=== PATIENT | male | born 1950 | race American Indian/Alaskan Native ===

== ENCOUNTER 2020-06-16 13:27 | Outpatient (CLI) | payer MEDICARE ==
[2020-06-16 14:55] LABS: Albumin 3.9 g/dL (3.9-5); BUN/Creatinine Ratio 15; Blood Urea Nitrogen 20 mg/dL (9-20); Calcium 9.7 mg/dL (8.4-10.2); Hemolysis Index 18
== END 2020-06-16 13:28 | disposition home or self-care (01) ==
LOC: LAB 13:27
PROVIDERS: ATTEND Student in an Organized Health Care Education/Training Program
DX: I12.9 Hypertensive chronic kidney disease with stage 1 through stage 4 chronic kidney disease, or unspecified chronic kidney disease (principal); N18.30 Chronic kidney disease, stage 3 unspecified; E87.5 Hyperkalemia; R94.4 Abnormal results of kidney function studies; E87.1 Hypo-osmolality and hyponatremia
CPT/HCPCS: 36415; 80048; 82040; 84100